=== PATIENT | male | born 1990 | race Native Hawaiian/Other Pacific Islander ===

== ENCOUNTER 2016-07-31 14:23 | Emergency (ER) | payer OTHER ==
[~2016-07-31] VITALS: Ht 180.3 cm; Wt 2.6 kg
[2016-07-31 14:37] VITALS: TEMP 98.7
[2016-07-31 15:00] VITALS: BP 142/72
== END 2016-07-31 15:00 | disposition home or self-care (01) ==
LOC: ED 14:23
DX: R21 Rash and other nonspecific skin eruption (principal)
CPT/HCPCS: 99281

== ENCOUNTER 2021-05-26 16:10 | Emergency (ER) | payer OTHER | END 2021-05-26 18:05 | disposition home or self-care (01) | LOC: ED 16:10 | DX: Z53.21 Procedure and treatment not carried out due to patient leaving prior to being seen by health care provider (principal) | CPT/HCPCS: 99281 ==

== ENCOUNTER 2021-06-09 09:52 | Emergency (ER) | payer OTHER ==
[~2021-06-09] VITALS: Ht 180.3 cm; Wt 59.0 kg
[2021-06-09 10:00] VITALS: TEMP 97.7
[2021-06-09 10:19] LABS: PLATELET COUNT 325 K/uL (142-355)
[2021-06-09 14:15] VITALS: BP 122/68
== END 2021-06-09 14:29 | disposition home or self-care (01) ==
LOC: ED 09:52
PROVIDERS: Hospitalist
DX: F32.89 Other specified depressive episodes (principal); F15.20 Other stimulant dependence, uncomplicated; F15.10 Other stimulant abuse, uncomplicated; Z11.52 Encounter for screening for COVID-19
CPT/HCPCS: 80053; 80307; 80320; 80329; 81000; 85027; 87635; 93005; 99285; U0003

== ENCOUNTER 2022-04-10 15:12 | Emergency (ER) | payer OTHER ==
[~2022-04-10] VITALS: Ht 180.3 cm; Wt 54.4 kg
[2022-04-10 15:20] VITALS: TEMP 98.5
[2022-04-10 16:12] LABS: PLATELET COUNT 279 K/uL (142-355)
[2022-04-10 16:21] LABS: POTASSIUM 3.6 mmol/L (3.6-5.2)
[2022-04-10 18:00] VITALS: BP 138/68
== END 2022-04-10 18:20 | disposition home or self-care (01) ==
LOC: ED 15:12
PROVIDERS: Family Medicine
DX: F15.10 Other stimulant abuse, uncomplicated (principal); F22 Delusional disorders; F41.8 Other specified anxiety disorders; Z72.0 Tobacco use
CPT/HCPCS: 80053; 80307; 81000; 84443; 85027; 99283

== ENCOUNTER 2022-04-19 21:49 | Emergency (ER) | payer OTHER | END 2022-04-19 22:00 | disposition home or self-care (01) | LOC: ED 21:49 | DX: Z53.21 Procedure and treatment not carried out due to patient leaving prior to being seen by health care provider (principal) | CPT/HCPCS: 99281 ==

== ENCOUNTER 2023-01-12 15:44 | Emergency (ER) | payer OTHER ==
[~2023-01-12] VITALS: Ht 180.3 cm; Wt 63.5 kg
[2023-01-12 16:51] LABS: PLATELET COUNT 294 K/uL (142-355)
[2023-01-12 16:58] LABS: POTASSIUM 4.1 mmol/L (3.6-5.2)
[2023-01-13 08:00] VITALS: BP 118/64; TEMP 97.5
== END 2023-01-13 12:30 | disposition other institution (70) ==
LOC: ED 15:44
PROVIDERS: Family Medicine
DX: R44.1 Visual hallucinations (principal); F19.10 Other psychoactive substance abuse, uncomplicated; F17.210 Nicotine dependence, cigarettes, uncomplicated
CPT/HCPCS: 80053; 80143; 80179; 80307; 80320; 81002; 85027; 87635; 93005; 99285; U0003